=== PATIENT | male | born 1955 | race Two or more races ===

== ENCOUNTER 2021-01-28 11:12 | Outpatient (CLI) | payer OTHER | END 2021-01-28 11:30 | disposition home or self-care (01) | LOC: MRI 11:12 | PROVIDERS: ATTEND Neurological Surgery | DX: M48.061 Spinal stenosis, lumbar region without neurogenic claudication (principal) | CPT/HCPCS: 72148 ==

== ENCOUNTER → 2021-01-28 | Outpatient (CLI) | payer OTHER ==
[~2021-01-28] MED LIST: ASA81 MG; ATENOLOL100 MG PO; ATENOLOL50 MG PO; HYZAAR 100-121 UDTAB PO; Invanz IV; PEPCID20 MG PO; PLAVIX75 MG PO; SIMVASTATIN10 MG PO
== END | disposition home or self-care (01) ==
LOC: NUCLEAR 10:25
PROVIDERS: ATTEND Neurological Surgery
DX: I73.9 Peripheral vascular disease, unspecified (principal); M48.06 Spinal stenosis, lumbar region

== ENCOUNTER 2023-09-03 05:28 | Day surgery (SDC) | payer OTHER ==
[2023-08-27 13:42] LABS: HEMATOCRIT 42.4 % (39.0-48.0); HEMOGLOBIN 14.7 g/dL (13-16.00); MEAN CELL VOLUME 94.6 fL (80.0-100.00); MEAN CORPUSCULAR HEMOGLOBIN 32.8 pg (27.00-32.0); MEAN CORPUSCULAR HGB CONC 34.7 g/dl (32.0-36.0); PLATELET COUNT 234 K/uL (150-450); RED BLOOD COUNT 4.48 M/uL (4.00-6.00); RED CELL DISTRIBUTION WIDTH 13.8 % (11.5-14.5)
[2023-08-27 13:43] LABS: PH,URINE 5.5 (5.0-8.0); URINE APPEARANCE Clear; URINE BILIRRUBIN Negative (NEGATIVE); URINE BLOOD Trace; URINE COLOR Yellow; URINE GLUCOSE Negative (NEGATIVE); URINE LEUKOCYTE Negative; URINE NITRATE Negative; URINE PROTEIN Negative (NEGATIVE); URINE UROBILINOGEN 0.2 E.U./dl
[2023-08-27 13:45] LABS: URINE RBC 3.8 uL (0.0-20.8)
[2023-08-27 13:51] LABS: URINE BACTERIA 2.5 uL (0.0-1933); URINE EPITHELIAL CELLS 1.2 uL (0.0-38.8); URINE WBC 1.5 uL (0.0-23.2)
[2023-08-27 14:08] LABS: INR 1.02; PARTIAL THROMBOPLASTIN TIME 28.7 SECONDS (22.0-34.0)
[2023-08-27 14:11] LABS: PROTHROMBIN TIME 10.7 SECONDS (9.0-11.5)
[2023-08-27 14:21] LABS: ALBUMIN 4.2 gm/dL (3.4-5.0); BILIRUBIN TOTAL 0.81 mg/dL (0.3-1.2); CALCIUM 10.3 mg/dL (8.5-10.1); CREATININE SERUM 1.26 mg/dL (0.70-1.30); GFR 57.08; GLOBULINA 4.1 G/DL (2.4-3.5); POTASSIUM 4.58 mEq/L (3.5-5.1); TOTAL PROTEIN 8.3 gm/dL (6.4-8.2)
[~2023-09-03] VITALS: Ht 175.3 cm; Wt 88.0 kg
[~2023-09-03 05:28] MED LIST changes: +CIALIS5 MG PO; +COZAAR25 MG PO; +CRESTOR10 MG PO; +PROTONIX40 MG PO; +ZYLOPRIM100 M1 PO
[2023-09-03] MEDS ORDERED: CEFAZOLIN SODIUM 1,000 MG VIAL ONE (06:51)
[2023-09-03] MEDS ORDERED: DEXAMETHASONE SODIUM PHOSPHATE 4 MG/ML VIAL ONE (07:17)
== END 2023-09-03 13:20 | disposition home or self-care (01) ==
LOC: CIR.AMB 05:28
PROVIDERS: ATTEND Otolaryngology
DX: E04.2 Nontoxic multinodular goiter (principal); I10 Essential (primary) hypertension; M19.90 Unspecified osteoarthritis, unspecified site; R00.1 Bradycardia, unspecified; M54.9 Dorsalgia, unspecified

== ENCOUNTER 2023-11-05 05:40 | Day surgery (SDC) | payer OTHER ==
[2023-10-30 10:51] LABS: URINE APPEARANCE Clear; URINE BILIRRUBIN Negative (NEGATIVE); URINE BLOOD Negative; URINE COLOR Yellow; URINE GLUCOSE Negative (NEGATIVE); URINE KETONE Negative (NEGATIVE); URINE LEUKOCYTE Negative; URINE NITRATE Negative; URINE PROTEIN Negative (NEGATIVE); URINE UROBILINOGEN 0.2 E.U./dl
[2023-10-30 10:55] LABS: URINE BACTERIA 17.6 uL (0.0-1933); URINE EPITHELIAL CELLS 2.3 uL (0.0-38.8); URINE WBC 3.2 uL (0.0-23.2)
[2023-10-30 11:00] LABS: HEMATOCRIT 38.6 % (39.0-48.0); HEMOGLOBIN 13.4 g/dL (13-16.00); MEAN CELL VOLUME 92.6 fL (80.0-100.00); MEAN CORPUSCULAR HEMOGLOBIN 32.2 pg (27.00-32.0); MEAN CORPUSCULAR HGB CONC 34.8 g/dl (32.0-36.0); PLATELET COUNT 225 K/uL (150-450); RED BLOOD COUNT 4.17 M/uL (4.00-6.00); RED CELL DISTRIBUTION WIDTH 13.9 % (11.5-14.5)
[2023-10-30 11:17] LABS: INR 1.05; PROTHROMBIN TIME 11.4 SECONDS (9.0-11.5)
[2023-10-30 11:54] LABS: CALCIUM 9.8 mg/dL (8.5-10.1); CREATININE SERUM 1.21 mg/dL (0.70-1.30); GFR 59.63; POTASSIUM 4.14 mEq/L (3.5-5.1)
[2023-10-30 12:23] VITALS: BP 160/80
[2023-11-05] MEDS ORDERED: DEXAMETHASONE SODIUM PHOSPHATE 4 MG/ML VIAL ONE (07:11)
[2023-11-07 09:07] LABS: hav igm Negative (Negative); hcv Non Reactive (Non Reactive); hep b c Negative (Negative); hep b s ag Negative (Negative)
== END 2023-11-05 13:45 | disposition home or self-care (01) ==
LOC: CIR.AMB 05:40
PROVIDERS: ATTEND Otolaryngology
DX: C73 Malignant neoplasm of thyroid gland (principal); I10 Essential (primary) hypertension; E03.9 Hypothyroidism, unspecified; F41.0 Panic disorder [episodic paroxysmal anxiety]; K57.90 Diverticulosis of intestine, part unspecified, without perforation or abscess without bleeding